=== PATIENT | male | born 1980 | race African-American/Black ===

== ENCOUNTER 2020-10-18 08:27 | Emergency (ER) | payer OTHER ==
[~2020-10-18] VITALS: Ht 185.4 cm; Wt 115.5 kg
[2020-10-18 10:37] VITALS: BP 151/89
--- NOTE | 2020-10-18 10:51 | PHYS DOC ---
Past Medical History Past Surgical History: No Surgical History ([employer]) General Adult EDM: Chief Complaint: BACK PAIN OR INJURY HPI: HPI: Patient is a 39 year old male presenting to the ED today complaining of chronic sharp intermittent 10 out of 10 neck pain, symptoms of been going on for 1 year. Patient states a year ago he injured his neck lifting a couch at work. He states he had a CT done of the cervical spine which showed he has C5-C6 disc herniation and disc protrusion. He states he is supposed to have an MRI of the cervical spine but he has not been able to get the MRI done through the PCP, he states because of Covid they are not able to take more than 2 new patients per day. Patient denies any new injuries. States the pain is becoming constant and currently inhibiting his ability to work. Denies any numbness or tingling to bilateral upper extremities but states the pain radiates to bilateral upper extremities. Denies any new injuries. ([employer]) Review of Systems: Review of Systems: Constitutional: Denies fever or chills. [] Musculoskeletal: Reports neck pain Integument: Denies rash. [] Neurologic: Denies headache, focal weakness or sensory changes. [] Psychiatric: Denies depression or anxiety. [] ([employer]) Heart Score: C/O Chest Pain: N/A Risk Factors: Risk Factors: DM, Current or recent (<one month) smoker, HTN, HLP, family history of CAD, obesity. Risk Scores: Score 0 - 3: 2.5% MACE over next 6 weeks - Discharge Home Score 4 - 6: 20.3% MACE over next 6 weeks - Admit for Clinical Observation Score 7 - 10: 72.7% MACE over next 6 weeks - Early Invasive Strategies ([employer]) Allergies: Allergies: Allergies Coded Allergies Type Severity Reaction Last Updated Verified No Known Drug Allergies 10/18/20 No (ANNA KWON APRN) Physical Exam: PE: Constitutional: Well developed, well nourished, no acute distress, non-toxic a ppearance. [] Neck: Normal range of motion, no tenderness, supple, no stridor. [] Back: No tenderness, no CVA tenderness. [] Extremities: No tenderness, no cyanosis, no clubbing, ROM intact, no edema. [] Neurologic: Alert and oriented X 3, normal motor function, normal sensory function, no focal deficits noted. [] Psychologic: Affect normal, judgement normal, mood normal. [] (ANNA KWON APRN) Current Patient Data: Vital Signs: Vital Signs Date Time Temp Pulse Resp B/P (MAP) Pulse Ox O2 Delivery O2 Flow Rate FiO2 10/18/20 10:37 98.9 83 20 151/89 98 Room Air 98.9 (ANNA KWON APRN) EKG: EKG: [] (ANNA KWON APRN) Radiology/Procedures: Radiology/Procedures: [] (ANNA KWON APRN) Course & Med Decision Making: Course & Med Decision Making Pertinent Labs and Imaging studies reviewed. (See chart for details) This a 39-year-old male patient presented to the ED today with chronic neck pain and a CT done last year showing C5-C6 disc herniation/protrusion. Given referral to a neurosurgeon. (ANNA KWON APRN) Dragon Disclaimer: Dragon Disclaimer: This electronic medical record was generated, in whole or in part, using a voice recognition dictation system. (ANNA KWON APRN) Departure Departure Impression: Primary Impression: Cervical spine pain Additional Impression: Protrusion of cervical intervertebral disc Disposition: 01 HOME / SELF CARE / HOMELESS Condition: STABLE Referrals: NO PCP (PCP) CELIA BARRIGA MD Call his office today and set up a follow up appointment Patient Instructions: Back Pain, Adult Additional Instructions: Please call the provided neurosurgeon and set up a follow-up appointment Attending Signature Attending Signature I have reviewed the PA/[employer]IRCRAFT ENGINE SPECIALIST's note and plan of care. I was available for consultation as needed during the patient's visit in the emergency department. I agree with the clinical impression, plan, and disposition. (ROBERTH RODRIGUEZ DO) ANNA KWON APRN Oct 18, 2020 10:50 ROBERTH RODRIGUEZ DO Oct 19, 2020 14:02
== END 2020-10-18 10:50 | disposition home or self-care (01) ==
LOC: ER 08:27
DX: M50.222 Other cervical disc displacement at C5-C6 level (principal)
CPT/HCPCS: 99281